=== PATIENT | male | born 1980 | race American Indian/Alaskan Native ===

== ENCOUNTER 2021-06-17 16:19 | Emergency (ER) | payer MEDICAID, OTHER ==
[2021-06-17] MEDS ORDERED: ACETAMINOPHEN 325 MG TAB PO ONE (17:26)
[2021-06-17] MEDS ORDERED: FAMOTIDINE 20 MG TAB PO ONE (17:26)
[2021-06-17] MEDS ORDERED: IBUPROFEN 400 MG TAB PO ONE (17:26)
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
[2021-06-17] MEDS ORDERED: hydrOXYzine HCL 10 MG TAB PO ONE (18:00)
[2021-06-17 19:25] VITALS: BP 137/80
== END 2021-06-17 19:29 | disposition home or self-care (01) ==
LOC: ED 16:19
DX: Z04.1 Encounter for examination and observation following transport accident (principal); R21 Rash and other nonspecific skin eruption; V49.40XA Driver injured in collision with unspecified motor vehicles in traffic accident, initial encounter; Y93.89 Activity, other specified; Y92.89 Other specified places as the place of occurrence of the external cause; Y99.8 Other external cause status
CPT/HCPCS: 99282; J3490